=== PATIENT | female | born 1955 | race Caucasian/White ===

== ENCOUNTER 2018-10-17 18:59 | Emergency (ER) | payer OTHER, MEDICARE ==
[~2018-10-17] VITALS: Ht 167.6 cm; Wt 72.6 kg
[~2018-10-17 18:59] MED LIST: CEPH500 PO; CLON.5; CLON.5 PO; CODBUTASA PO; DOCSEN PO; ESTR2; HYDACE25S PR; HYDCOR1TOA TOP; HYDMOR4 PO; LACT10SY PO; LOVA40; MAGCIT300 PO; PHENA200 PO; PROC10 PO; PROM25 PO; RAMAPRIL PO; RAMI5; ROPI1; RXHYD5325 PO; RXHYDMOR2 PO; RXPROM25 PO; SERT100; SERT25 PO; [UNRECOGNIZED DRUG - REMARK]
[2018-10-17 20:01] LABS: BASOPHILS ABSOLUTE AUTO 0.07 K/mm3 (0.00-0.23); BASOPHILS PERCENT AUTO 0 % (0-2); EOSINOPHILS ABSOLUTE AUTO 0.05 K/mm3 (0.00-0.68); EOSINOPHILS PERCENT AUTO 0 % (0-6); Hematocrit 44.1 % (33.0-51.0); Hemoglobin 14.3 g/dL (11.5-16.0); IMMATURE GRAN ABSOLUTE AUTO 0.05 K/mm3 (0.00-0.10); IMMATURE GRAN PERCENT AUTO 0 % (0-1); LYMPHOCYTES ABSOLUTE AUTO 0.83 K/mm3 (0.84-5.20); LYMPHOCYTES PERCENT AUTO 5 % (21-46); MONOCYTES ABSOLUTE AUTO 0.56 K/mm3 (0.16-1.47); MONOCYTES PERCENT AUTO 4 % (4-13); Mean Corpuscular HGB 29.7 pg (26.0-34.0); Mean Corpuscular HGB Conc 32.4 g/dL (31.5-36.5); Mean Corpuscular Volume 92 fL (80-100); Mean Platelet Volume 9.2 fL (9.1-12.4); NEUTROPHILS ABSOLUTE AUTO 14.12 K/mm3 (1.96-9.15); NEUTROPHILS PERCENT AUTO 90 % (41-73); Platelet Count 241 K/mm3 (150-400); RDW Coefficient Variation 12.1 % (11.7-14.2); RDW Standard Deviation 40.5 fL (35.1-46.3); Red Blood Cell Count 4.82 M/mm3 (3.80-5.20); White Blood Cell Count 15.68 K/mm3 (4.00-11.30)
[2018-10-17] MEDS ORDERED: ATOR40TA PO (20:02)
[2018-10-17] MEDS ORDERED: SERT100 PO (20:03)
[2018-10-17] MEDS ORDERED: RAMI5 PO (20:03)
[2018-10-17] MEDS ORDERED: RIZATRIPTAN5 MG (20:04)
[2018-10-17 20:10] LABS: Source, Urine Clean Catch
[2018-10-17 20:13] LABS: Appearance, Urine Clear (Clear); Bilirubin, Urine Neg (Neg); Blood, Urine 3+ (Neg); Color, Urine Yellow (P-Yellow); Glucose Qualitative, Urine Neg (Neg); Ketones, Urine Neg (Neg); Leukocyte Esterase, Urine Neg (Neg); Nitrite, Urine Neg (Neg); Protein, Urine 1+ (Neg); Specific Gravity, Urine 1.025 (1.003-1.022); Urobilinogen, Urine NORM (Normal)
[2018-10-17 20:20] LABS: Albumin/Globulin Ratio 1.2 (0.8-1.8); Bilirubin, Total 0.6 mg/dL (0.1-1.0); Bun/Creatinine Ratio 25.1 (12.0-20.0); Calcium, Blood 9.3 mg/dL (8.5-10.1); Globulin, Blood 3.3 g/dL (2.2-4.0); Potassium, Blood 3.3 mmol/L (3.5-5.5); Total Protein, Blood 7.3 g/dL (6.4-8.2)
[2018-10-17 20:23] LABS: Red Blood Cells, Urine 0-2 /hpf (0-2); White Blood Cells, Urine 0-2 /hpf (0-5)
[2018-10-17 20:24] LABS: Bacteria Not Seen /hpf; Squamous Epithelial Cells Few /hpf (Few)
[2018-10-17] MEDS ORDERED: ONDA4ODT MM (21:53)
[2018-10-17] MEDS ORDERED: Roxicodone5 MG PO (21:53)
== END 2018-10-17 22:29 | disposition home or self-care (01) ==
LOC: ER 18:59
PROVIDERS: Physician Assistant
DX: N13.2 Hydronephrosis with renal and ureteral calculous obstruction (principal); I10 Essential (primary) hypertension; F32.9 Major depressive disorder, single episode, unspecified; F41.9 Anxiety disorder, unspecified; Z88.2 Allergy status to sulfonamides; Z79.899 Other long term (current) drug therapy; Z98.890 Other specified postprocedural states; Z90.710 Acquired absence of both cervix and uterus
CPT/HCPCS: 74176; 80053; 81001; 83690; 85025; 96374; 99284-25; J1170

== ENCOUNTER → 2018-12-03 | Outpatient (CLI) | payer OTHER ==
[~2018-12-03] MED LIST changes: +ATOR40TA PO; +ONDA4ODT MM; +RAMI5 PO; +RIZATRIPTAN5 MG; +Roxicodone5 MG PO; +SERT100 PO
[2018-12-06 15:31] LABS: Albumin, Blood 3.6 g/dL (3.4-5.0); Albumin/Globulin Ratio 1.2 (0.8-1.8); Anion Gap 8 mmol/L (6-16); Blood Urea Nitrogen 20 mg/dL (8-24); Bun/Creatinine Ratio 23.8 (12.0-20.0); CO2, Blood 29 mmol/L (21-32); Calcium, Blood 8.7 mg/dL (8.5-10.1); Chloride, Blood 105 mmol/L (98-108); Creatinine, Blood 0.84 mg/dL (0.40-1.00); Globulin, Blood 2.9 g/dL (2.2-4.0); Glomerular Filtration Rate >60 (60-); Glucose, Blood 104 mg/dL (70-99); Potassium, Blood 3.6 mmol/L (3.5-5.5); Sodium, Blood 142 mmol/L (136-145); Total Protein, Blood 6.5 g/dL (6.4-8.2)
[2018-12-06 15:32] LABS: Alanine Aminotransfer (ALT/SGP 22 U/L (12-78); Alk Phos 98 U/L (40-126); Aspartate Aminotrans (AST/SGOT 18 U/L (12-37); Bilirubin, Total 0.5 mg/dL (0.1-1.0)
[2018-12-06 15:37] LABS: BASOPHILS ABSOLUTE AUTO 0.03 K/mm3 (0.00-0.23); BASOPHILS PERCENT AUTO 1 % (0-2); EOSINOPHILS PERCENT AUTO 4 % (0-6); Hematocrit 38.9 % (33.0-51.0); Hemoglobin 13.3 g/dL (11.5-16.0); IMMATURE GRAN ABSOLUTE AUTO 0.01 K/mm3 (0.00-0.10); IMMATURE GRAN PERCENT AUTO 0 % (0-1); LYMPHOCYTES ABSOLUTE AUTO 1.45 K/mm3 (0.84-5.20); LYMPHOCYTES PERCENT AUTO 26 % (21-46); MONOCYTES ABSOLUTE AUTO 0.36 K/mm3 (0.16-1.47); MONOCYTES PERCENT AUTO 7 % (4-13); Mean Corpuscular HGB Conc 34.2 g/dL (31.5-36.5); Mean Corpuscular Volume 88 fL (80-100); Mean Platelet Volume 9.3 fL (9.1-12.4); NEUTROPHILS ABSOLUTE AUTO 3.49 K/mm3 (1.96-9.15); NEUTROPHILS PERCENT AUTO 63 % (41-73); Platelet Count 251 K/mm3 (150-400); RDW Coefficient Variation 12.1 % (11.7-14.2); RDW Standard Deviation 39.1 fL (35.1-46.3); Red Blood Cell Count 4.43 M/mm3 (3.80-5.20); White Blood Cell Count 5.54 K/mm3 (4.00-11.30)
== END | disposition home or self-care (01) ==
LOC: LAB EV 14:35 → LAB SHORT 14:35
PROVIDERS: General Practice
DX: N39.0 Urinary tract infection, site not specified (principal); R59.0 Localized enlarged lymph nodes
CPT/HCPCS: 80053; 85025; 85651; 87070; 87077; 87086; 87147; 87186

== ENCOUNTER → 2019-05-26 | Outpatient (CLI) | payer OTHER, MEDICARE | END | disposition home or self-care (01) | LOC: LAB SHORT 10:46 → LAB EV 10:46 | DX: N39.0 Urinary tract infection, site not specified (principal) | CPT/HCPCS: 87077; 87086; 87186 ==

== ENCOUNTER → 2019-08-02 | Outpatient (CLI) | payer OTHER, MEDICARE | END | disposition home or self-care (01) | LOC: LAB EV 18:46 → LAB SHORT 18:46 | DX: N39.0 Urinary tract infection, site not specified (principal) | CPT/HCPCS: 87077; 87086; 87186 ==

== ENCOUNTER → 2019-12-09 | Outpatient (CLI) | payer OTHER | END | disposition home or self-care (01) | LOC: LAB EV 10:28 → LAB SHORT 10:28 | DX: N39.0 Urinary tract infection, site not specified (principal) | CPT/HCPCS: 87086 ==

== ENCOUNTER → 2020-02-17 | Outpatient (CLI) | payer OTHER | END | disposition home or self-care (01) | LOC: LAB EV 09:38 → LAB SHORT 09:38 | DX: J02.9 Acute pharyngitis, unspecified (principal) | CPT/HCPCS: 87081 ==

== ENCOUNTER → 2020-05-24 | Outpatient (CLI) | payer OTHER | END | disposition home or self-care (01) | LOC: LAB SHORT 17:14 → LAB EV 17:14 | DX: N39.0 Urinary tract infection, site not specified (principal) | CPT/HCPCS: 87077; 87086; 87186 ==

== ENCOUNTER → 2020-07-12 | Outpatient (CLI) | payer OTHER | END | disposition home or self-care (01) | LOC: LAB SHORT 09:45 → LAB EV 09:45 | DX: N39.0 Urinary tract infection, site not specified (principal) | CPT/HCPCS: 87077; 87086; 87147; 87186 ==

== ENCOUNTER → 2020-10-21 | Outpatient (CLI) | payer OTHER | END | disposition home or self-care (01) | LOC: LAB SHORT 10:01 → LAB EV 10:01 | DX: N39.0 Urinary tract infection, site not specified (principal) | CPT/HCPCS: 87077; 87086; 87186 ==

== ENCOUNTER → 2021-07-26 | Outpatient (CLI) | payer OTHER | END | disposition home or self-care (01) | LOC: LAB SHORT 15:19 → LAB 15:19 | DX: R35.81 Nocturnal polyuria (principal) | CPT/HCPCS: 87086 ==

== ENCOUNTER → 2022-10-11 | Outpatient (CLI) | payer OTHER | LOC: LAB 10:31 → LAB SHORT 10:31 | DX: N39.0 Urinary tract infection, site not specified (principal) | CPT/HCPCS: 87077; 87086; 87147; 87186 ==

== ENCOUNTER → 2023-01-20 | Outpatient (CLI) | payer OTHER | END | disposition home or self-care (01) | LOC: LAB 17:07 → LAB SHORT 17:07 | DX: N39.0 Urinary tract infection, site not specified (principal) | CPT/HCPCS: 87077; 87086; 87186 ==

== ENCOUNTER → 2023-01-28 | Outpatient (CLI) | payer OTHER | END | disposition home or self-care (01) | LOC: LAB 13:14 → LAB SHORT 13:14 | DX: N39.0 Urinary tract infection, site not specified (principal) | CPT/HCPCS: 87086; 87147 ==

== ENCOUNTER → 2024-08-11 | Outpatient (CLI) | payer OTHER | END | disposition home or self-care (01) | LOC: LAB 10:45 → LAB SHORT 10:45 | DX: N39.0 Urinary tract infection, site not specified (principal) | CPT/HCPCS: 87077; 87086; 87186 ==

== ENCOUNTER → 2024-08-22 | Outpatient (CLI) | payer OTHER | LOC: LAB 07:56 → LAB SHORT 07:56 | DX: N39.0 Urinary tract infection, site not specified (principal); R31.9 Hematuria, unspecified | CPT/HCPCS: 87077; 87086; 87186 ==

== ENCOUNTER 2024-10-17 21:00 | Emergency (ER) | payer OTHER ==
[~2024-10-17] VITALS: Ht 165.1 cm; Wt 72.6 kg
[2024-10-17 21:03] VITALS: BP 105/78
[2024-10-17] MEDS ORDERED: Prochlorperazine Edisylate 10 mg Vial IV ONE (23:45)
[2024-10-17] MEDS ORDERED: DiphenhydrAMINE HCl 50 MG/ML 1ML Vial IV ONE (23:45)
[2024-10-17] MEDS ORDERED: Ketorolac Tromethamine 15mg Vial IV ONE (23:45)
== END 2024-10-18 00:42 | disposition home or self-care (01) ==
LOC: ER 21:00
DX: G43.909 Migraine, unspecified, not intractable, without status migrainosus (principal); I10 Essential (primary) hypertension; Z88.2 Allergy status to sulfonamides; Z79.899 Other long term (current) drug therapy
CPT/HCPCS: 96374; 96375; 99282; J0780; J1200; J1885

== ENCOUNTER 2024-11-28 06:23 | Day surgery (SDC) | payer OTHER ==
[~2024-11-28] VITALS: Ht 162 cm; Wt 72.8 kg
[2024-11-28] VITALS (12 sets, daily range): BP systolic 113–142; BP diastolic 69–94
[~2024-11-28 06:23] MED LIST changes: +Hair, Skin & N1 EACH PO; +LISI20 PO; +Lactated Ringer's 1,000 ML IV SCH; +VIT D2-K1 20-1259 ML
[2024-11-28] MEDS ORDERED: propofoL 20 ML IV ONE (07:01)
--- NOTE | 2024-11-28 07:03 | NUR ---
History, Chart, Medications and Allergies reviewed before start of procedure. Patient up to Ambulate independently. Gait steady. Pre-Op teaching done. Pt verbalizes understanding. Patient confirms NPO status and agrees with scheduled surgery. Patient states colon prep results light yellow with small amounts of sediment. Patient States Post-Procedure ride home has been arranged.
--- NOTE | 2024-11-28 07:40 | NUR ---
11/28/24 0740 Kyree Mackenzie CONFIRMED AND REVIEWED H&P, MEDCICATIONS, ALLERGIES, MEDICAL HISTORY, RESPIRATORY HISTORY, VITAL SIGNS, 3-LEAD EKG, CONSENTS, AND PHYSICIAN ORDERS. PATIENT CONFIRMS NPO STATUS AND AGREES WITH SCHEDULED PROCEDURE. MONITOR INTACT WITH CONTINUOUS PULSE OXIMETRY, CAPNOGRAPHY, 3-LEAD EKG, INTERMITTENT BP. SUPPLEMENTAL O2 TO BE TITRATED THROUGHOUT PROCEDURE TO MAINTAIN O2 SATURATION ABOVE 90%. PATIENT DETERMINED TO BE ASA APPROPRIATE FOR PROPOFOL SEDATION PRIOR TO START OF PROCEDURE BY DR. BARNARD.
== END 2024-11-28 08:22 | disposition home or self-care (01) ==
LOC: ORSCMMR 06:23 → ORD 07:30 → ORSCMMR 08:22
PROVIDERS: Internal Medicine Gastroenterology
PROC: 0DBN8ZX Excision of Sigmoid Colon, Via Natural or Artificial Opening Endoscopic, Diagnostic (ICD-10-PCS; principal; 2024-11-28 07:30)
DX: Z12.11 Encounter for screening for malignant neoplasm of colon (principal); Z80.0 Family history of malignant neoplasm of digestive organs; K63.5 Polyp of colon; I10 Essential (primary) hypertension; G47.30 Sleep apnea, unspecified; F32.A Depression, unspecified; Z79.899 Other long term (current) drug therapy
CPT/HCPCS: 88305; J2704; J7120

== ENCOUNTER → 2025-08-21 | Outpatient (CLI) | payer OTHER ==
[~2025-08-21] MED LIST changes: -Lactated Ringer's 1,000 ML IV SCH
== END ==
LOC: LAB SHORT 15:49 → LAB 15:49
DX: N39.0 Urinary tract infection, site not specified (principal)
CPT/HCPCS: 87077; 87086; 87186